=== PATIENT | male | born 1985 | race Two or more races ===

== ENCOUNTER 2020-05-18 17:23 | Emergency (ER) | payer OTHER ==
[~2020-05-18] VITALS: Ht 167.6 cm; Wt 77.0 kg
[2020-05-18] MEDS ORDERED: ONDANSETRON HCL 4MG/2ML INJ IV ONE (22:45)
[2020-05-18] MEDS ORDERED: SODIUM CHLORIDE 0.9% 1,000 ML IV ONE (22:45)
[2020-05-18 23:29] LABS: BASOPHILS % 0.5 % (0.0-2.0); EOSINOPHILS % 0.4 % (0.0-5.0); HEMATOCRIT. 50.5 % (42.0-52.0); HEMOGLOBIN. 16.9 g/dL (14.0-18.0); LYMPHOCYTES % 34.2 % (20.0-50.0); MEAN CORPUSCULAR HEMOGLOBIN 30.7 pg (28.0-32.0); MEAN CORPUSCULAR VOLUME 91.9 fL (80.0-94.0); MEAN PLATELET VOLUME 9.1 fl (7.4-10.4); MONOCYTES % 7.6 % (2.0-8.0); NEUTROPHILS % 57.3 % (40.0-76.0); PLATELET 277 x1000/uL (130-400); RED CELL DISTRIBUTION WIDTH 15.1 % (11.6-14.6)
[2020-05-18 23:31] LABS: CHLORIDE 108 mEq/L (98-107)
[2020-05-19 00:13] LABS: ETHANOL BLOOD 362 mg/dL
[2020-05-19 01:59] LABS: CLARITY URINE CLEAR (CLEAR); COLOR URINE YELLOW (YELLOW); KETONES URINE NEGATIVE (NEGATIVE); LEUKOCYTE ESTERASE URINE NEGATIVE (NEGATIVE); NITRITE URINE NEGATIVE (NEGATIVE); OCCULT BLOOD URINE NEGATIVE (NEGATIVE); PROTEIN URINE 1+ (NEGATIVE); SPECIFIC GRAVITY URINE 1.013 (1.005-1.030); UROBILINOGEN URINE 0.2 E.U./dL (0.2-1.0)
[2020-05-19 02:15] LABS: *AMPHETAMINES SCREEN URINE NEGATIVE (NEGATIVE); *BENZODIAZEPINES SCREEN URINE NEGATIVE (NEGATIVE); *COCAINE SCREEN URINE NEGATIVE (NEGATIVE); METHADONE URINE SCREEN NEGATIVE (NEGATIVE); OPIATES URINE SCREEN NEGATIVE (NEGATIVE)
[2020-05-19 02:16] LABS: *BARBITURATES SCREEN URINE NEGATIVE (NEGATIVE); CANNABINOID URINE SCREEN NEGATIVE (NEGATIVE); PHENCYCLIDINE URINE SCREEN NEGATIVE (NEGATIVE)
[2020-05-19 12:32] VITALS: BP 143/89
== END 2020-05-19 12:35 | disposition home or self-care (01) ==
LOC: ER 17:23 → EDBD 17:23 → ER 05-19 12:35
DX: F10.129 Alcohol abuse with intoxication, unspecified (principal); Y90.8 Blood alcohol level of 240 mg/100 ml or more; G93.40 Encephalopathy, unspecified; S43.402A Unspecified sprain of left shoulder joint, initial encounter; X58.XXXA Exposure to other specified factors, initial encounter; Y93.9 Activity, unspecified; Y92.9 Unspecified place or not applicable
CPT/HCPCS: 36415; 73030; 80053; 80305; 80307; 80320; 80329; 81003; 85025; 93005; 96361; 96374; 99285; J2405; J7030; G0480

== ENCOUNTER 2020-06-16 20:55 | Emergency (ER) | payer MEDICAID, OTHER ==
[~2020-06-16] VITALS: Ht 167.6 cm; Wt 68.0 kg
[2020-06-16] MEDS ORDERED: FOLIC ACID 1 MG, THIAMINE HCL 100 MG, MVI, ADULT NO.1 10 ML in DEXTROSE 5% WATER 1,000 ML IV ONE ×4 (21:45)
[2020-06-16 22:25] LABS: BASOPHILS % 0.5 % (0.0-2.0); HEMATOCRIT. 45.3 % (42.0-52.0); HEMOGLOBIN. 15.3 g/dL (14.0-18.0); LYMPHOCYTES % 30.4 % (20.0-50.0); MEAN CORPUSCULAR HEMOGLOBIN 31.5 pg (28.0-32.0); MEAN CORPUSCULAR VOLUME 93.3 fL (80.0-94.0); NEUTROPHILS % 60.1 % (40.0-76.0); PLATELET 274 x1000/uL (130-400); RED BLOOD CELL COUNT 4.85 mill/uL (4.7-6.1); RED CELL DISTRIBUTION WIDTH 14.2 % (11.6-14.6)
[2020-06-16 22:32] LABS: CHLORIDE 107 mEq/L (98-107)
[2020-06-16 22:42] LABS: CREATINE KINASE 136 IU/L (39-308)
[2020-06-16 22:53] LABS: ETHANOL BLOOD 391 mg/dL
[2020-06-16 23:11] LABS: CLARITY URINE CLEAR (CLEAR); COLOR URINE YELLOW (YELLOW); KETONES URINE NEGATIVE (NEGATIVE); LEUKOCYTE ESTERASE URINE NEGATIVE (NEGATIVE); NITRITE URINE NEGATIVE (NEGATIVE); OCCULT BLOOD URINE NEGATIVE (NEGATIVE); PROTEIN URINE NEGATIVE (NEGATIVE); SPECIFIC GRAVITY URINE 1.008 (1.005-1.030); UROBILINOGEN URINE 0.2 E.U./dL (0.2-1.0)
[2020-06-16 23:21] LABS: *BARBITURATES SCREEN URINE NEGATIVE (NEGATIVE)
[2020-06-16 23:22] LABS: *AMPHETAMINES SCREEN URINE NEGATIVE (NEGATIVE); *BENZODIAZEPINES SCREEN URINE NEGATIVE (NEGATIVE); *COCAINE SCREEN URINE NEGATIVE (NEGATIVE); METHADONE URINE SCREEN NEGATIVE (NEGATIVE); OPIATES URINE SCREEN NEGATIVE (NEGATIVE); PHENCYCLIDINE URINE SCREEN NEGATIVE (NEGATIVE)
[2020-06-16 23:23] LABS: CANNABINOID URINE SCREEN NEGATIVE (NEGATIVE)
[2020-06-17 05:11] VITALS: BP 118/55
== END 2020-06-17 05:26 | disposition home or self-care (01) ==
LOC: ER 20:55
DX: T51.0X1A Toxic effect of ethanol, accidental (unintentional), initial encounter (principal); X58.XXXA Exposure to other specified factors, initial encounter; G92 Toxic encephalopathy
CPT/HCPCS: 36415; 70450; 71045; 80053; 80305; 80307; 80320; 80329; 81003; 82550; 83605; 85025; 93005; 96365; 99285; J3411; J3490; J7070; G0480